=== PATIENT | female | born 1945 | race Caucasian/White ===

== ENCOUNTER 2019-09-27 13:26 | Emergency (ER) | payer OTHER ==
[~2019-09-27] VITALS: Ht 149.9 cm; Wt 59.4 kg
[2019-09-27] MEDS ORDERED: GLUMETZA500 MG PO (13:56)
[2019-09-27] MEDS ORDERED: LOSARTAN POTASS50 MG PO (13:57)
[2019-09-27] MEDS ORDERED: NORVASC5 MG PO (13:57)
[2019-09-27] MEDS ORDERED: CIPRO500 MG PO (16:16)
== END 2019-09-27 16:42 | disposition home or self-care (01) ==
LOC: ER 13:26
DX: R31.29 Other microscopic hematuria (principal); I16.0 Hypertensive urgency; I10 Essential (primary) hypertension

== ENCOUNTER 2019-11-04 08:28 | Emergency (ER) | payer OTHER ==
[~2019-11-04] VITALS: Ht 149.9 cm; Wt 62.1 kg
[~2019-11-04 08:28] MED LIST: CIPRO500 MG PO; GLUMETZA500 MG PO; LOSARTAN POTASS50 MG PO; NORVASC5 MG PO
== END 2019-11-04 13:39 | disposition home or self-care (01) ==
LOC: ER 08:28
DX: N93.8 Other specified abnormal uterine and vaginal bleeding (principal); R19.09 Other intra-abdominal and pelvic swelling, mass and lump

== ENCOUNTER 2023-03-12 00:09 | Inpatient (IN) | payer OTHER ==
[~2023-03-12] VITALS: Ht 162.6 cm; Wt 725.7 kg
[2023-03-12 02:19] LABS: HEMATOCRIT 38.1 % (36.0-45.00); HEMOGLOBIN 12.8 g/dL (12.0-15.00); MEAN CELL VOLUME 97.2 fL (80.00-100.00); MEAN CORPUSCULAR HEMOGLOBIN 32.5 pg (27.00-32.0); MEAN CORPUSCULAR HGB CONC 33.5 g/dl (32.0-36.0); PLATELET COUNT 224 K/uL (150-450); RED BLOOD COUNT 3.92 M/uL (4.00-6.00); RED CELL DISTRIBUTION WIDTH 16.2 % (11.5-14.5)
[2023-03-12 02:33] LABS: INR 1.02; PROTHROMBIN TIME 10.7 SECONDS (9.0-11.5)
[2023-03-12 02:37] LABS: ALBUMIN 2.4 gm/dL (3.4-5.0); BILIRUBIN TOTAL 0.92 mg/dL (0.3-1.2); CREATININE SERUM 0.85 mg/dL (0.55-1.02); GFR 65.03; GLOBULINA 5.2 G/DL (2.4-3.5); POTASSIUM 3.93 mEq/L (3.5-5.1); TOTAL PROTEIN 7.6 gm/dL (6.4-8.2)
[2023-03-12 20:06] LABS: INR 1.03; PROTHROMBIN TIME 10.8 SECONDS (9.0-11.5)
[2023-03-12 20:36] LABS: D DIMER 4.17 MG/L
[2023-03-13 08:14] LABS: CHOL HDL RATIO 4.2 (0-5.0); TSH 0.591 uIU/mL (0.358-3.74)
[2023-03-13 12:11] LABS: URINE APPEARANCE Turbid; URINE BILIRRUBIN Negative (NEGATIVE); URINE BLOOD Moderate; URINE COLOR Dark Yellow; URINE GLUCOSE Negative (NEGATIVE); URINE LEUKOCYTE Moderate; URINE NITRATE Negative
[2023-03-13 12:52] LABS: URINE EPITHELIAL CELLS 20.8 uL (0.0-38.8); URINE RBC 3337.3 uL (0.0-20.8); URINE WBC 133.4 uL (0.0-23.2)
[2023-03-13 13:22] LABS: URINE PROTEIN 100 (NEGATIVE)
[2023-03-13 13:23] LABS: URINE BACTERIA > 9821.2 uL (0.0-1933); URINE BACTERIA MANY
[2023-03-15 19:17] LABS: HEMATOCRIT 35.2 % (36.0-45.00); HEMOGLOBIN 12.1 g/dL (12.0-15.00); MEAN CELL VOLUME 96.1 fL (80.00-100.00); MEAN CORPUSCULAR HGB CONC 34.3 g/dl (32.0-36.0); PLATELET COUNT 192 K/uL (150-450); RED BLOOD COUNT 3.67 M/uL (4.00-6.00); RED CELL DISTRIBUTION WIDTH 16.4 % (11.5-14.5)
[2023-03-15 19:55] LABS: ALBUMIN 1.8 gm/dL (3.4-5.0); BILIRUBIN TOTAL 0.69 mg/dL (0.3-1.2); CALCIUM 7.7 mg/dL (8.5-10.1); CREATININE SERUM 0.74 mg/dL (0.55-1.02); GFR 76.3; GLOBULINA 3.9 G/DL (2.4-3.5); POTASSIUM 3.66 mEq/L (3.5-5.1); TOTAL PROTEIN 5.7 gm/dL (6.4-8.2)
[2023-03-18 07:14] LABS: ALBUMIN 1.4 gm/dL (3.4-5.0); BILIRUBIN TOTAL 0.56 mg/dL (0.3-1.2); CALCIUM 7.3 mg/dL (8.5-10.1); CREATININE SERUM 0.93 mg/dL (0.55-1.02); GFR 58.61; GLOBULINA 3.5 G/DL (2.4-3.5); POTASSIUM 3.58 mEq/L (3.5-5.1); TOTAL PROTEIN 4.9 gm/dL (6.4-8.2)
[2023-03-18 22:05] LABS: HEMATOCRIT 27.5 % (36.0-45.00); MEAN CELL VOLUME 95.5 fL (80.00-100.00); MEAN CORPUSCULAR HGB CONC 34.9 g/dl (32.0-36.0); PLATELET COUNT 169 K/uL (150-450); RED BLOOD COUNT 2.88 M/uL (4.00-6.00); RED CELL DISTRIBUTION WIDTH 16.7 % (11.5-14.5)
[2023-03-18 22:12] LABS: HEMOGLOBIN 9.6 g/dL (12.0-15.00); MEAN CORPUSCULAR HEMOGLOBIN 33.3 pg (27.00-32.0)
[2023-03-19 21:23] LABS: INR 1.13; PROTHROMBIN TIME 11.8 SECONDS (9.0-11.5)
[2023-03-19 21:26] LABS: PARTIAL THROMBOPLASTIN TIME 44.1 SECONDS (22.0-34.0)
[2023-03-20 08:40] LABS: MEAN CELL VOLUME 94.5 fL (80.00-100.00); MEAN CORPUSCULAR HGB CONC 35.4 g/dl (32.0-36.0); PLATELET COUNT 194 K/uL (150-450); RED BLOOD COUNT 2.07 M/uL (4.00-6.00); RED CELL DISTRIBUTION WIDTH 16.6 % (11.5-14.5)
[2023-03-20 08:45] LABS: MEAN CORPUSCULAR HEMOGLOBIN 33.3 pg (27.00-32.0)
[2023-03-20 08:46] LABS: HEMATOCRIT 19.6 % (36.0-45.00); HEMOGLOBIN 6.9 g/dL (12.0-15.00)
[2023-03-22 08:05] LABS: HEMATOCRIT 30.3 % (36.0-45.00); MEAN CELL VOLUME 87.7 fL (80.00-100.00); MEAN CORPUSCULAR HGB CONC 35.4 g/dl (32.0-36.0); PLATELET COUNT 216 K/uL (150-450); RED BLOOD COUNT 3.45 M/uL (4.00-6.00); RED CELL DISTRIBUTION WIDTH 19.7 % (11.5-14.5)
[2023-03-22 08:18] LABS: HEMOGLOBIN 10.7 g/dL (12.0-15.00)
[2023-03-25 06:07] LABS: ALBUMIN 1.2 gm/dL (3.4-5.0); BILIRUBIN TOTAL 2.08 mg/dL (0.3-1.2); CREATININE SERUM 2.83 mg/dL (0.55-1.02); GFR 16.23; GLOBULINA 3.1 G/DL (2.4-3.5); POTASSIUM 4.46 mEq/L (3.5-5.1); TOTAL PROTEIN 4.3 gm/dL (6.4-8.2)
[2023-03-25 06:19] LABS: HEMATOCRIT 27.5 % (36.0-45.00); HEMOGLOBIN 9.3 g/dL (12.0-15.00); MEAN CELL VOLUME 90.5 fL (80.00-100.00); MEAN CORPUSCULAR HEMOGLOBIN 30.5 pg (27.00-32.0); MEAN CORPUSCULAR HGB CONC 33.7 g/dl (32.0-36.0); PLATELET COUNT 191 K/uL (150-450); RED BLOOD COUNT 3.04 M/uL (4.00-6.00); RED CELL DISTRIBUTION WIDTH 20.5 % (11.5-14.5)
[2023-03-26 07:18] LABS: ALBUMIN 1.1 gm/dL (3.4-5.0); BILIRUBIN TOTAL 2.77 mg/dL (0.3-1.2); CALCIUM 6.9 mg/dL (8.5-10.1); CREATININE SERUM 3.53 mg/dL (0.55-1.02); GFR 12.57; GLOBULINA 3.2 G/DL (2.4-3.5); MAGNESIUM 2.7 mg/dL (1.8-2.4); POTASSIUM 4.39 mEq/L (3.5-5.1); TOTAL PROTEIN 4.3 gm/dL (6.4-8.2)
[2023-03-26 08:25] LABS: ABG PH 7.411 (7.35-7.45); ABG PO2 83.9 mmHg (80-100); ABG pCO2 20.7 mmHg (35-45); BASE EXCESS -9.2 mmol/l; BICARBONATE 12.8 mmol/l (23-25); SaO2 96.1 %; Tco2 13.5 mmol/l
[2023-03-26 08:26] LABS: allen test SATISFACTORY; o2 40 %; puncture site RADIAL RIGHT
[2023-03-26 09:59] LABS: HEMATOCRIT 26.2 % (36.0-45.00); HEMOGLOBIN 8.9 g/dL (12.0-15.00); MEAN CELL VOLUME 90.5 fL (80.00-100.00); MEAN CORPUSCULAR HEMOGLOBIN 30.6 pg (27.00-32.0); MEAN CORPUSCULAR HGB CONC 33.9 g/dl (32.0-36.0); PLATELET COUNT 180 K/uL (150-450)
[2023-03-26 14:32] LABS: BILIRUBIN TOTAL 2.49 mg/dL (0.3-1.2); BILIRUBIN,CONJUGATED 1.98 mg/dL (0.0-0.2); BILIRUBIN,UNCONJUGATED 0.51 mg/dL (0.0-0.6)
[2023-03-26 22:31] LABS: ABG PH 7.261 (7.35-7.45); ABG PO2 76.4 mmHg (80-100); ABG pCO2 25.2 mmHg (35-45); SaO2 91.7 %
[2023-03-26 22:32] LABS: BICARBONATE 11.1 mmol/l (23-25); Tco2 11.9 mmol/l; o2 75 %; puncture site RADIAL RIGHT
[2023-03-26 23:39] LABS: ABG PH 7.218 (7.35-7.45); ABG PO2 69.2 mmHg (80-100); BASE EXCESS -12.9 mmol/l; BICARBONATE 13.8 mmol/l (23-25); SaO2 87.9 %; Tco2 14.9 mmol/l; allen test SATISFACTORY; o2 100 %; puncture site RADIAL LEFT
[2023-03-26 23:40] LABS: ABG pCO2 34.7 mmHg (35-45)
[2023-03-26 23:52] LABS: ALBUMIN 1.5 gm/dL (3.4-5.0); BILIRUBIN TOTAL 2.77 mg/dL (0.3-1.2); CREATININE SERUM 3.61 mg/dL (0.55-1.02); GFR 12.25; POTASSIUM 4.09 mEq/L (3.5-5.1); TOTAL PROTEIN 3.5 gm/dL (6.4-8.2)
[2023-03-27 00:18] LABS: MEAN CELL VOLUME 90.7 fL (80.00-100.00); MEAN CORPUSCULAR HGB CONC 33.6 g/dl (32.0-36.0); RED BLOOD COUNT 2.31 M/uL (4.00-6.00); RED CELL DISTRIBUTION WIDTH 20.5 % (11.5-14.5)
[2023-03-27 00:49] LABS: MEAN CORPUSCULAR HEMOGLOBIN 30.3 pg (27.00-32.0); PLATELET COUNT 100 K/uL (150-450)
[2023-03-27 08:01] LABS: ALBUMIN 1.9 gm/dL (3.4-5.0); BILIRUBIN TOTAL 3.51 mg/dL (0.3-1.2); CREATININE SERUM 3.75 mg/dL (0.55-1.02); GFR 11.73; GLOBULINA 2.2 G/DL (2.4-3.5); MAGNESIUM 2.5 mg/dL (1.8-2.4); PHOSPHOROUS 7.7 mg/dL (2.5-4.9); POTASSIUM 4.56 mEq/L (3.5-5.1); TOTAL PROTEIN 4.1 gm/dL (6.4-8.2)
[2023-03-27 08:05] LABS: MEAN CELL VOLUME 93.9 fL (80.00-100.00); MEAN CORPUSCULAR HGB CONC 33.1 g/dl (32.0-36.0); RED BLOOD COUNT 2.31 M/uL (4.00-6.00); RED CELL DISTRIBUTION WIDTH 21.8 % (11.5-14.5)
[2023-03-27 09:14] LABS: ABG PH 7.112 (7.35-7.45)
[2023-03-27 09:15] LABS: ABG PO2 73.8 mmHg (80-100); ABG pCO2 34.8 mmHg (35-45); BASE EXCESS -17.6 mmol/l; BICARBONATE 10.9 mmol/l (23-25); SaO2 85.7 %; Tco2 11.9 mmol/l
[2023-03-27 09:16] LABS: allen test SATISFACTORY; o2 100 %; puncture site RADIAL RIGHT
[2023-03-27 09:31] LABS: HEMATOCRIT 21.7 % (36.0-45.00); HEMOGLOBIN 7.2 g/dL (12.0-15.00); MEAN CORPUSCULAR HEMOGLOBIN 31.1 pg (27.00-32.0); PLATELET COUNT 107 K/uL (150-450)
== END 2023-03-27 21:18 | disposition expired | DRG 981 ==
LOC: ER 00:09 → ICU 18:37 → MEDJ 18:37 → ICU 03-26 03:05
PROVIDERS: General Practice; Internal Medicine; Internal Medicine Nephrology; ADMIT Specialist; ATTEND Specialist
PROC: BW28ZZZ Computerized Tomography (CT Scan) of Head (ICD-10-PCS; 2023-03-12)
PROC: BW38ZZZ Magnetic Resonance Imaging (MRI) of Head (ICD-10-PCS; 2023-03-12)
PROC: B24BZZZ Ultrasonography of Heart with Aorta (ICD-10-PCS; 2023-03-12)
PROC: 4A12X4Z Monitoring of Cardiac Electrical Activity, External Approach (ICD-10-PCS; 2023-03-13)
PROC: BW21YZZ Computerized Tomography (CT Scan) of Abdomen and Pelvis using Other Contrast (ICD-10-PCS; 2023-03-19)
PROC: 30233N1 Transfusion of Nonautologous Red Blood Cells into Peripheral Vein, Percutaneous Approach (ICD-10-PCS; 2023-03-20)
PROC: 0W9F00Z Drainage of Abdominal Wall with Drainage Device, Open Approach (ICD-10-PCS; principal; 2023-03-22)
PROC: 0FB03ZX Excision of Liver, Percutaneous Approach, Diagnostic (ICD-10-PCS; 2023-03-22)
PROC: 0BH17EZ Insertion of Endotracheal Airway into Trachea, Via Natural or Artificial Opening (ICD-10-PCS; 2023-03-26)
PROC: 5A1945Z Respiratory Ventilation, 24-96 Consecutive Hours (ICD-10-PCS; 2023-03-26)
PROC: BW28ZZZ Computerized Tomography (CT Scan) of Head (ICD-10-PCS; 2023-03-26)
PROC: 02HV33Z Insertion of Infusion Device into Superior Vena Cava, Percutaneous Approach (ICD-10-PCS; 2023-03-26)
DX: I63.89 Other cerebral infarction (principal); A41.9 Sepsis, unspecified organism; R65.21 Severe sepsis with septic shock; J69.0 Pneumonitis due to inhalation of food and vomit; J96.01 Acute respiratory failure with hypoxia; I16.9 Hypertensive crisis, unspecified; I69.351 Hemiplegia and hemiparesis following cerebral infarction affecting right dominant side; N17.9 Acute kidney failure, unspecified; N82.4 Other female intestinal-genital tract fistulae; G93.89 Other specified disorders of brain; I48.91 Unspecified atrial fibrillation; D64.9 Anemia, unspecified; S30.1XXA Contusion of abdominal wall, initial encounter
CPT/HCPCS: 70544